=== PATIENT | female | born 1960 | race Caucasian/White ===

== ENCOUNTER 2019-08-16 10:59 | Emergency (ER) | payer OTHER ==
[~2019-08-16] VITALS: Ht 165.1 cm; Wt 81.6 kg
--- NOTE | 2019-08-16 11:20 | NUR ---
PT PRESENTED TO THE ER WITH A C/O RT LEG/KNEE PAIN S/P TRIP AND FALL AT WORK ON SATURDAY. PT WENT TO ER 1 VIA WC. PT IS ABLE TO PUT MINIMAL WEIGHT ON THE RLE. RT KNEE IS EDEMATOUS, WARM TO TOUCH, AND PT C/O PAIN WHEN SHE BENDS HER KNEE. ICE PACKS X2 APPLIED AND WARM BLANKET GIVEN TO PT.
--- NOTE | 2019-08-16 11:34 | NUR ---
XRAY IN PROGRESS AT THE BEDSIDE.
--- NOTE | 2019-08-16 11:55 | NUR ---
DR WOLFE IS HERE TODAY.
--- NOTE | 2019-08-16 11:58 | NUR ---
LEG IMMOBILIZER AND Crutches dispensed. Pt instructed on proper use of crutches. Patient able to demonstrate correct use of crutches.
--- NOTE | 2019-08-16 12:01 | NUR ---
CALLED [facility]: CECI QUIROGA.
--- NOTE | 2019-08-16 12:20 | NUR ---
Patient discharged to home in stable condition. Written and verbal after care instructions given. Patient verbalizes understanding of instruction and RX. Pt's is driving pt home. VSS.
--- NOTE | 2019-08-16 12:23 | NUR ---
pt ambulated out with crutches.
[2019-08-16 12:27] VITALS: BP 123/82
== END 2019-08-16 12:28 | disposition home or self-care (01) ==
LOC: ER 11:03
DX: S82.091A Other fracture of right patella, initial encounter for closed fracture (principal); I10 Essential (primary) hypertension; K21.9 Gastro-esophageal reflux disease without esophagitis; J45.909 Unspecified asthma, uncomplicated; E78.5 Hyperlipidemia, unspecified; F17.200 Nicotine dependence, unspecified, uncomplicated; Z88.5 Allergy status to narcotic agent; W01.0XXA Fall on same level from slipping, tripping and stumbling without subsequent striking against object, initial encounter; Y93.89 Activity, other specified; Y92.89 Other specified places as the place of occurrence of the external cause; Y99.0 Civilian activity done for income or pay
CPT/HCPCS: 73564-TC